=== PATIENT | female | born 1985 | race Caucasian/White ===

== ENCOUNTER 2018-08-17 08:53 | Emergency (ER) | payer MEDICAID ==
[~2018-08-17] VITALS: Ht 149.9 cm; Wt 60.0 kg
[2018-08-17 08:56] VITALS: BP 102/53; PULSE 68; RESP 18; Ht 149.9 cm; Wt 60.0 kg
[2018-08-17] MEDS ORDERED: IBUPROFEN 800 MG TAB PO ONE (10:00)
[2018-08-17] MEDS ORDERED: IBUP-1542 PO (10:25)
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
== END 2018-08-17 10:37 | disposition home or self-care (01) ==
LOC: FTE 08:53
DX: M25.531 Pain in right wrist (principal); R51 Headache; M54.9 Dorsalgia, unspecified
CPT/HCPCS: 73110; Z7502; Z7610